=== PATIENT | female | born 1950 | race Hispanic/Latino ===

== ENCOUNTER → 2020-08-23 | Outpatient (CLI) | payer MEDICARE, OTHER | END | disposition home or self-care (01) | LOC: SHCH 13:35 | PROVIDERS: ATTEND Internal Medicine Cardiovascular Disease | DX: R06.00 Dyspnea, unspecified (principal) | CPT/HCPCS: 93306; 93356 ==

== ENCOUNTER 2021-03-29 05:36 | Observation (INO) | payer OTHER, MEDICARE ==
[2021-03-23 11:19] LABS: BASOPHILS % (AUTO) 0.8 % (0.0-5.0); EOSINOPHILS % (AUTO) 2.7 % (0.0-8.0); HEMATOCRIT 34.2 % (36-48); LYMPHOCYTES % (AUTO) 19.3 % (21.0-51.0); MEAN CORPUSCULAR HEMOGLOBIN 27.7 pg (27.0-33.0); MEAN CORPUSCULAR HGB CONC 32.2 g/dL (32.0-36.0); MEAN CORPUSCULAR VOLUME 86.1 fL (79-99); MONOCYTES % (AUTO) 7.8 % (3.0-13.0); NEUTROPHILS % (AUTO) 68.2 % (40.0-77.0); PLATELET COUNT (AUTO) 168 K/uL (130-400); RED BLOOD CELL COUNT(AUTO) 3.97 MIL/uL (4.00-5.50); RED CELL DISTRIBUTION WIDTH 15.3 % (11.0-15.5); WHITE BLOOD COUNT (AUTO) 4.9 K/uL (4.8-10.8)
[2021-03-23 11:27] LABS: CREATININE 0.8 mg/dL (0.5-1.5); POTASSIUM 4.2 mmol/L (3.5-5.1)
[2021-03-23 12:04] LABS: INR 1.05 (0.85-1.15); PROTHROMBIN TIME 11.4 SEC (9.6-11.6)
[2021-03-23 12:05] LABS: PARTIAL THROMBOPLASTIN TIME 22.8 SEC (26.3-35.5)
[2021-03-24 14:37] VITALS: BP 151/68
[~2021-03-29] VITALS: Ht 154.9 cm; Wt 71.2 kg
[2021-03-29] VITALS (24 sets, daily range): BP systolic 98–141; BP diastolic 51–60
[~2021-03-29 05:36] MED LIST: ATOR40TA71 PO; CLOP75TA32 PO; FERR325T22 PO; LISI1TAB51 PO
[2021-03-29] MEDS: CEFAZOLIN SODIUM 1 GM VIAL IVP SCH ×3 (06:00→14:37)
[2021-03-29] MEDS ORDERED: 0.9%NACL 1000ML 1,000 ML IV ONE (06:37)
[2021-03-29] MEDS: LACTATED RINGERS 1000ML 1,000 ML IV SCH ×2 (07:13→11:56)
[2021-03-29] MEDS ORDERED: TRANEXAMIC ACID 1000MG/10ML ONE (07:14)
[2021-03-29] MEDS ORDERED: PROPOFOL 1000 MG/100 ML 100 ML IV ONE (07:46)
[2021-03-29] MEDS ORDERED: ROPIVACAINE 0.5% 5MG/ML 30ML IJ ONE (07:46)
[2021-03-29] MEDS ORDERED: FENTANYL CITRATE PF 50 MCG/1 ML 2ML VIAL ONE (07:50)
[2021-03-29] MEDS ORDERED: MIDAZOLAM HCL 1 MG/ML 2ML VIAL ONE (07:54)
[2021-03-29] MEDS ORDERED: EPHEDRINE SULFATE 50 MG/ML AMPULE ONE (08:17)
[2021-03-29] MEDS ORDERED: LISINOPRIL 20 MG TABLET PO SCH (10:24)
[2021-03-29] MEDS ORDERED: HYDROCHLOROTHIAZIDE 25 MG TABLET PO SCH (10:25)
[2021-03-29] MEDS ORDERED: MORPHINE 4 MG SYG IVP PRN (10:30)
[2021-03-29] MEDS: ACETAMINOPHEN 500 MG TABLET PO SCH ×2 (10:30→12:16)
[2021-03-29] MEDS ORDERED: HYDROCODONE/ACETAMINOPHEN 5/325 MG TAB PO PRN (10:30)
[2021-03-29] MEDS: 0.9%NACL 1000ML 1,000 ML IV SCH ×2 (12:14→20:43)
[2021-03-29] MEDS: FERROUS SULFATE 325 MG TABLET.DR PO SCH (12:15)
[2021-03-29] MEDS: TRAMADOL HCL 50 MG TABLET PO SCH ×2 (12:16→17:34)
[2021-03-29] MEDS ORDERED: ROPIVICAINE 250MG+KETOROLAC 15MG+EPINEPHRINE 0.3+CLONIDINE 80 IV PRN ×5 (12:42)
[2021-03-29] MEDS: OXYCODONE HCL 5 MG TAB PO PRN ×2 (14:40→20:43)
[2021-03-29] MEDS ORDERED: KETOROLAC 30MG VIAL (30MG/ML) ONE (15:55)
[2021-03-29] MEDS ORDERED: KETOROLAC 30MG VIAL (30MG/ML) IV ONE (16:00)
[2021-03-29] MEDS: GABAPENTIN 300 MG CAPSULE PO SCH (20:41)
[2021-03-29] MEDS: ASPIRIN 81 MG EC TAB PO SCH (20:41)
[2021-03-29] MEDS: FAMOTIDINE 20MG TAB PO SCH (20:41)
[2021-03-30] MEDS: CEFAZOLIN SODIUM 1 GM VIAL IVP SCH (00:10)
[2021-03-30] MEDS: TRAMADOL HCL 50 MG TABLET PO SCH ×5 (00:11→23:38)
[2021-03-30 03:41] VITALS: BP 98/50
[2021-03-30 04:33] LABS: MEAN CORPUSCULAR HEMOGLOBIN 27.8 pg (27.0-33.0); MEAN CORPUSCULAR HGB CONC 31.7 g/dL (32.0-36.0); MEAN CORPUSCULAR VOLUME 87.5 fL (79-99); RED BLOOD CELL COUNT(AUTO) 2.63 MIL/uL (4.00-5.50); RED CELL DISTRIBUTION WIDTH 15.8 % (11.0-15.5); WHITE BLOOD COUNT (AUTO) 4.1 K/uL (4.8-10.8)
[2021-03-30 04:41] LABS: CREATININE 0.9 mg/dL (0.5-1.5); POTASSIUM 4.1 mmol/L (3.5-5.1)
[2021-03-30] MEDS: ACETAMINOPHEN 500 MG TABLET PO SCH ×3 (06:17→17:42)
[2021-03-30 08:00] VITALS: BP 86/48
[2021-03-30] MEDS: FAMOTIDINE 20MG TAB PO SCH ×2 (08:36→20:13)
[2021-03-30] MEDS: ASPIRIN 81 MG EC TAB PO SCH (08:36)
[2021-03-30] MEDS: ONDANSETRON 4MG INJ IVP PRN ×2 (08:36→13:53)
[2021-03-30] MEDS: FERROUS SULFATE 325 MG TABLET.DR PO SCH (08:36)
[2021-03-30] MEDS: 0.9%NACL 1000ML 1,000 ML IV SCH (08:37)
[2021-03-30] MEDS: POLYETHYLENE GLYCOL 3350 17 GM POWD.PACK PO SCH (08:37)
[2021-03-30] MEDS ORDERED: 0.9% NACL 500ML IV.SOLN 500 ML IV SCH (09:00)
[2021-03-30 11:58] VITALS: BP 120/57
[2021-03-30] MEDS: GABAPENTIN 300 MG CAPSULE PO SCH ×3 (12:51→20:13)
[2021-03-30] MEDS: MORPHINE 4 MG SYG IVP PRN ×2 (12:52→17:42)
[2021-03-30] MEDS: OXYCODONE HCL 5 MG TAB PO PRN (13:54)
[2021-03-30 16:00] VITALS: BP 129/54
[2021-03-30 17:40] LABS: BASOPHILS % (AUTO) 0.5 % (0.0-5.0); EOSINOPHILS % (AUTO) 0.7 % (0.0-8.0); HEMATOCRIT 23.3 % (36-48); MEAN CORPUSCULAR HEMOGLOBIN 27.9 pg (27.0-33.0); MEAN CORPUSCULAR HGB CONC 32.2 g/dL (32.0-36.0); MEAN CORPUSCULAR VOLUME 86.6 fL (79-99); MONOCYTES % (AUTO) 6.4 % (3.0-13.0); NEUTROPHILS % (AUTO) 80.2 % (40.0-77.0); PLATELET COUNT (AUTO) 106 K/uL (130-400); RED BLOOD CELL COUNT(AUTO) 2.69 MIL/uL (4.00-5.50); WHITE BLOOD COUNT (AUTO) 4.2 K/uL (4.8-10.8)
[2021-03-30 20:20] VITALS: BP 117/53
[2021-03-31 00:02] VITALS: BP 106/49
[2021-03-31] MEDS: ACETAMINOPHEN 500 MG TABLET PO SCH ×3 (02:27→17:51)
[2021-03-31 03:50] VITALS: BP 100/54
[2021-03-31] MEDS: TRAMADOL HCL 50 MG TABLET PO SCH ×3 (05:11→17:09)
[2021-03-31 08:00] VITALS: BP 103/45
[2021-03-31] MEDS: POLYETHYLENE GLYCOL 3350 17 GM POWD.PACK PO SCH (09:08)
[2021-03-31] MEDS: FERROUS SULFATE 325 MG TABLET.DR PO SCH (09:08)
[2021-03-31] MEDS: FAMOTIDINE 20MG TAB PO SCH ×2 (09:08→19:55)
[2021-03-31] MEDS: GABAPENTIN 300 MG CAPSULE PO SCH ×2 (09:08→19:55)
[2021-03-31] MEDS ORDERED: ASPIRIN 81 MG EC TAB ONE (10:04)
[2021-03-31] MEDS: ASPIRIN 81 MG EC TAB PO SCH (10:06)
[2021-03-31 11:57] VITALS: BP 123/39
[2021-03-31 16:00] VITALS: BP 145/59
[2021-03-31] MEDS ORDERED: IBUPROFEN 600 MG TABLET ONE (19:44)
[2021-03-31 20:00] VITALS: BP 123/49
[2021-03-31] MEDS ORDERED: IBUPROFEN 600 MG TABLET PO PRN (20:00)
[2021-03-31] MEDS ORDERED: IBUPROFEN 800 MG TAB PO PRN (20:00)
[2021-04-01] VITALS: BP 106/54
[2021-04-01] MEDS: ACETAMINOPHEN 500 MG TABLET PO SCH ×2 (03:43→10:08)
[2021-04-01] MEDS: TRAMADOL HCL 50 MG TABLET PO SCH ×3 (03:45→12:00)
[2021-04-01 04:00] VITALS: BP 105/52
[2021-04-01 07:54] VITALS: BP 113/53
[2021-04-01] MEDS ORDERED: CLOPIDOGREL 75MG TAB PO SCH (09:00)
[2021-04-01] MEDS: GABAPENTIN 300 MG CAPSULE PO SCH (10:07)
[2021-04-01] MEDS: POLYETHYLENE GLYCOL 3350 17 GM POWD.PACK PO SCH (10:08)
[2021-04-01] MEDS: FERROUS SULFATE 325 MG TABLET.DR PO SCH (10:08)
[2021-04-01] MEDS: FAMOTIDINE 20MG TAB PO SCH (10:08)
[2021-04-01 11:01] VITALS: BP 129/47
== END 2021-04-01 16:00 ==
LOC: DAH 05:36 → DAHIP 05:37 → 4AH 11:35
PROVIDERS: ADMIT Orthopaedic Surgery; ATTEND Orthopaedic Surgery
DX: M17.11 Unilateral primary osteoarthritis, right knee (principal); R11.2 Nausea with vomiting, unspecified; R79.89 Other specified abnormal findings of blood chemistry; Z20.822 Contact with and (suspected) exposure to COVID-19; Z79.01 Long term (current) use of anticoagulants; Z86.718 Personal history of other venous thrombosis and embolism
CPT/HCPCS: 27447; 36415 ×2; 73560; 80048 ×2; 82948; 85025 ×2; 85027; 85610; 85730; 87635; 87641; 88305; 88311; 96361 ×3; 96374; 96375 ×2; 96376; 97039 ×7; 97116 ×6; 97161; 97530 ×4; A4215; A4216; A4221; A4223; A4344; A4649 ×6; A4930; A6212; A9272; C1776; C9803; G0378 ×75; G8978; G8979; G8980; G8981; G8982; G8983; J0690 ×4; J1885; J2250; J2270 ×3; J2405 ×2; J2704; J2795; J3010; J3490 ×2; J7030 ×7

== ENCOUNTER → 2023-09-27 | Outpatient (CLI) | payer OTHER, MEDICARE ==
[~2023-09-27] MED LIST changes: +ACET-2743 PO; +CHOL-34 PO; +CYAN250014 PO
== END | disposition home or self-care (01) ==
LOC: RAH 12:56
PROVIDERS: ATTEND Orthopaedic Surgery
DX: M47.26 Other spondylosis with radiculopathy, lumbar region (principal); M48.061 Spinal stenosis, lumbar region without neurogenic claudication; M51.16 Intervertebral disc disorders with radiculopathy, lumbar region
CPT/HCPCS: 72148

== ENCOUNTER → 2024-11-04 | Outpatient (CLI) | payer OTHER, MEDICARE ==
[2024-11-04 12:16] LABS: BASOPHILS # (AUTO) 0.04 K/uL (0.00-0.20); EOSINOPHILS # (AUTO) 0.06 K/uL (0.00-0.70); EOSINOPHILS % (AUTO) 1.5 % (0.0-8.0); HEMATOCRIT 29.4 % (36-48); IMMATURE GRANULOCYTE ABSOLUTE 0.01 K/uL (0-1); LYMPHOCYTES # (AUTO) 0.9 K/uL (1.0-4.8); LYMPHOCYTES % (AUTO) 22.7 % (21.0-51.0); MEAN CORPUSCULAR HEMOGLOBIN 27.6 pg (27.0-33.0); MEAN CORPUSCULAR VOLUME 86.2 fL (79-99); MONOCYTES # (AUTO) 0.3 K/uL (0.1-1.0); MONOCYTES % (AUTO) 6.7 % (3.0-13.0); NEUTROPHILS # (AUTO) 2.8 K/uL (1.8-7.7); NEUTROPHILS % (AUTO) 67.9 % (40.0-77.0); PLATELET COUNT (AUTO) 178 K/uL (130-400); RED BLOOD CELL COUNT(AUTO) 3.41 MIL/uL (4.00-5.50); RED CELL DISTRIBUTION WIDTH 16.2 % (11.0-15.5); WHITE BLOOD COUNT (AUTO) 4.1 K/uL (4.8-10.8)
[2024-11-04 12:45] LABS: ALBUMIN 3.8 g/dL (3.5-5.0); BILIRUBIN,TOTAL 0.5 mg/dL (0.2-1.0); MAGNESIUM 1.9 mg/dL (1.80-2.40); PHOSPHORUS 4.7 mg/dL (2.5-4.9); POTASSIUM 4.5 mmol/L (3.5-5.1); TOTAL PROTEIN, SERUM 7.2 g/dL (6.0-8.3)
== END | disposition home or self-care (01) ==
LOC: LAB 09:34
PROVIDERS: ATTEND Internal Medicine Cardiovascular Disease
DX: R00.2 Palpitations (principal)
CPT/HCPCS: 36415; 80053; 83735; 83880; 84100; 85025